=== PATIENT | female | born 1940 | race American Indian/Alaskan Native ===

== ENCOUNTER 2017-05-18 16:43 | Inpatient (IN) | payer MEDICARE, MEDICAID ==
[2017-05-18] MEDS ORDERED: Vancomycin 750mg 750 MG/250 ML BAG IVPB STA (17:20)
[2017-05-18] MEDS ORDERED: Cefepime IV 2 gm in NS 2 GM/100 ML BAG IVPB STA (17:23)
--- NOTE | 2017-05-18 17:35 | ED PDOC ---
Arrival/HPI - General Historian: Patient - History of Present Illness Time/Duration: > week Symptom Onset: Sudden Symptom Course: Intermittent Quality: Throbbing Severity Level: Moderate, Severe Context: Home - General Chief Complaint: Abnormal Skin Integrity Time Seen by Provider: 05/18/17 16:53 - History of Present Illness Narrative History of Present Illness (Text): 05/18/17 17:23 76F w/PMH sig for DM, HTN, COPD, CHF, asthma, Bilat chronic venous stasis and lymphedema, hx LE cellulitis, arthritis, gastritis, hiatal hernia evaluated for mechanical fall and L heel pain. Pt reports trying to get up out of recliner today when she slipped due to inability to bear weight on L heel. Pt reports trauma to gluteal area, no other areas of her body. Pt BIBA. L heel pain x 2 weeks, seen/evaluated by Dr. Sena on 05/15 with local wound care, Rx for ABx ( hasn't been filled), and recs for home nursing (not set up yet). Pt currently c/o L heel pain, severe, radiating up to mid calf, sharp. Also c/o Nausea. Denies emesis, F & C, vision changes, headache, back pain, neck pain, ab pain, other complaints. PMH: DM, HTN, COPD, CHF, asthma, Bilat chronic venous stasis and lymphedema, hx LE cellulitis, arthritis, gastritis, hiatal hernia, morbid obesity PSH: hx cardiac cath, hx hysterectomy, hernia repair All: chocolate, PCN, tomatoes, cheese doodles, Ibuprofen (hives) SH: lives with brother, denies ETOH, tobacco or illicit drug use PMD: Kayla (Hyatt,Chandler) Modifying Factors (Text): 05/18/17 17:35 Pressure to heel (Hyatt,Chandler) Past Medical History - Provider Review Nursing Documentation Reviewed: Yes - Infectious Disease Hx of Infectious Diseases: None - Reproductive Menopause: Yes - Cardiac Hx Cardiac Disorders: Yes (cardiac cath) Hx Congestive Heart Failure: Yes Hx Hypertension: Yes (also mild pulmonary HTN) - Pulmonary Hx Chronic Obstructive Pulmonary Disease (COPD): Yes - Neurological Hx Neurological Disorder: No - HEENT Hx HEENT Disorder: No - Renal Hx Renal Disorder: No - Endocrine/Metabolic Hx Diabetes Mellitus Type 2: Yes Hx Hypothyroidism: Yes - Hematological/Oncological Hx Blood Disorders: No - Integumentary Hx Dermatological Disorder: No - Musculoskeletal/Rheumatological Hx Arthritis: Yes - Gastrointestinal Hx Gastrointestinal Disorders: No (bm x 4 days) - Genitourinary/Gynecological Hx Reproductive Disorders: Yes (hysterectomy) - Psychiatric Hx Psychophysiologic Disorder: No Hx Substance Use: No - Surgical History Hx Cardiac Catheterization: Yes Hx Hysterectomy: Yes - Anesthesia Hx Anesthesia: Yes - Suicidal Assessment Feels Threatened In Home Enviroment: No Family/Social History - Physician Review Nursing Documentation Reviewed: Yes Family/Social History: No Known Family HX Smoking Status: Former Smoker Hx Alcohol Use: No Hx Substance Use: No Allergies/Home Meds Allergies/Adverse Reactions: Allergies chocolate flavor Allergy (Verified 05/15/17 16:49) RASH Penicillins Allergy (Verified 05/15/17 16:48) RASH cheese doodles Allergy (Uncoded 05/15/17 16:50) SWELLING tomatoe sauce Allergy (Uncoded 05/15/17 16:50) RASH Review of Systems - Physician Review All systems were reviewed & negative as marked: Yes - Review of Systems Constitutional: Normal. absent: Fevers Eyes: Normal. absent: Vision Changes ENT: Normal. absent: Sore Throat Respiratory: Normal. absent: SOB Cardiovascular: Normal. absent: Chest Pain Gastrointestinal: Nausea (occasional) Musculoskeletal: Other (L heel pain) Skin: Cellulitis (L heel) Physical Exam Vital Signs Reviewed: Yes Temperature: Afebrile Blood Pressure: Normal Pulse: Regular Respiratory Rate: Normal Appearance: Positive for: Non-Toxic, Comfortable Pain Distress: None Mental Status: Positive for: Alert and Oriented X 3 - Systems Exam Head: Present: Atraumatic, Normocephalic Extroacular Muscles: Present: EOMI Conjunctiva: Present: Normal Mouth: Present: Moist Mucous Membranes Nose (External): Present: Atraumatic Neck: Present: Normal Range of Motion Respiratory/Chest: Present: Clear to Auscultation, Good Air Exchange. No: Respiratory Distress, Accessory Muscle Use Cardiovascular: Present: Regular Rate and Rhythm, Normal S1, S2. No: Murmurs Abdomen: Present: Normal Bowel Sounds. No: Tenderness, Distention (obese), Peritoneal Signs, Rebound, Guarding Upper Extremity: Present: Normal Inspection. No: Cyanosis, Edema Lower Extremity: Present: Edema (B/L pitting edema ), Tenderness (L heel), Other (Bilat LE with dressings in place, Left dressing with serous strike through; Dressing removed, skin with ulcerated erythematous skin lesions with foul smell, heel with white discoloration. Tender to palpation over heel/ankle, up to mid calf. ). No: Normal Inspection Neurological: Present: GCS=15, CN II-XII Intact, Speech Normal Skin: Present: Warm, Dry, Rashes (Left lower leg), Normal Color, Erythematous ( Left lower leg), Hot (Left lower leg) Psychiatric: Present: Alert, Oriented x 3, Normal Insight, Normal Concentration Vital Signs Temp Pulse Resp BP Pulse Ox 05/18/17 22:12 72 168/111 H 05/18/17 21:20 66 16 170/91 H 100 05/18/17 19:31 71 16 163/105 H 95 05/18/17 16:55 97.8 F 71 18 136/71 100 Medical Decision Making ED Course and Treatment: Patient Seen With Resident: In agreement with resident note which contains more details about the patient. Patient was seen and evaluated with resident. Came up with plan and treatment together. (Tara Perez) 05/18/17 17:40 Pt seen/evaluated- case DW ED attending- will start ABx, order labs and podiatry consult due to Leg cellulitis. Pt did not fill PO Abx Rx given by podiatry. 05/18/17 17:[address] Sena's podiatry resident regarding pt consult- plan to round on pt tomorrow AM. OK with temporary dressing. 05/18/17 22:[address] Polo who accepts patient to service for admission, requesting gentle IVF and ISS - orders submitted. (Natasha Hyatt) - Lab Interpretations Lab Results: 05/18/17 19:30 05/18/17 19:30 Lab Results 05/18/17 19:30: Sodium 141, Potassium 4.4, Chloride 101, Carbon Dioxide 32, Anion Gap 12, BUN 36 H, Creatinine 2.0 H, Est GFR ( Amer) 29, Est GFR ( Non-Af Amer) 24, Random Glucose 56 L, Calcium 8.7, Total Bilirubin 1.0, AST 18, ALT 38, Alkaline Phosphatase 102, Total Protein 7.2, Albumin 3.6, Globulin 3.7, Albumin/Globulin Ratio 1.0 L 05/18/17 19:30: WBC 4.2 L, RBC 4.09, Hgb 10.7 L, Hct 34.8 L, MCV 85.1, MCH 26.2 , MCHC 30.7 L, RDW 22.5 H, Plt Count 226, Gran % 59.7, Lymph % (Auto) 22.3, [place] % (Auto) 15.7 H, Eos % (Auto) 2.1, Baso % (Auto) 0.2, Gran # 2.51, Lymph # 0.9 L, [place] # 0.7 H, Eos # 0.1, Baso # 0.01 - Medication Orders Current Medication Orders: Clonidine HCl (Catapres) 0.2 mg PO Q8 VIN Last Admin: 05/18/17 22:12 Dose: 0.2 mg MAR Pulse and Blood Pressure Document 05/18/17 22:12 HI (Rec: 05/18/17 22:12 [id number] Pulse Pulse Rate (60-90) 72 Blood Pressure Blood Pressure (100/60-150/90) 168/111 Discontinued Medications Acetaminophen (Tylenol 325mg Tab) 650 mg PO STAT STA Stop: 05/18/17 17:21 Last Admin: 05/18/17 19:18 Dose: Not Given Non-Admin Reason: Patient Refused Dextrose (Dextrose 50% Inj) 50 ml IVP STAT STA Stop: 05/18/17 20:57 Last Admin: 05/18/17 21:12 Dose: 50 ml IVP Administration Document 05/18/17 21:12 HI (Rec: 05/18/17 21:12 [id number][facility] Charges for Administration # of IVP Administrations 1 Vancomycin HCl (Vancomycin 750 Mg In Ns) 750 mg in 250 mls @ 167 mls/hr IVPB STAT STA PRN Reason: Protocol Stop: 05/18/17 18:49 Last Admin: 05/18/17 19:21 Dose: 167 mls/hr eMAR Start Stop Document 05/18/17 19:21 HI (Rec: 05/18/17 19:21 [id number]) Intravenous Solution Start Date 05/18/17 Start Time 19:21 Cefepime HCl (Maxipime 2gm) 2 gm in 100 mls @ 100 mls/hr IVPB STAT STA PRN Reason: Protocol Stop: 05/18/17 18:22 Morphine Sulfate (Morphine) 2 mg IVP STAT STA Stop: 05/18/17 19:05 Last Admin: 05/18/17 19:21 Dose: 2 mg [facility] Pain Assessment Document 05/18/17 19:21 HI (Rec: 05/18/17 19:21 [id number]) Pain Reassessment Is this a pain reassessment? No Sleep Is patient sleeping during reassessment? No Presence of Pain Presence of Pain Yes Pain Scale Used Pain Scale Used Numeric IVP Administration Document 05/18/17 19:21 HI (Rec: 05/18/17 19:21 [id number]) Charges for Administration # of IVP Administrations 1 Re-Assess: GERRY Pain Assessment Document 05/18/17 20:21 HI (Rec: 05/18/17 21:02 [id number]) Pain Reassessment Is this a pain reassessment? Yes Sleep Is patient sleeping during reassessment? No Presence of Pain Presence of Pain No Disposition/Present on Arrival - Present on Arrival Any Indicators Present on Arrival: No History of DVT/PE: No History of Uncontrolled Diabetes: No Urinary Catheter: No History of Decub. Ulcer: No History Surgical Site Infection Following: None - Disposition Have Diagnosis and Disposition been Completed?: Yes Disposition Time: 22:22 Patient Plan: Admission - Disposition Diagnosis: Cellulitis Disposition: HOSPITALIZED Patient Problems: Current Active Problems Problem Status Onset Cellulitis Acute Condition: FAIR
[2017-05-18] MEDS ORDERED: Morphine 2 mg/ml ISec IVP STA ×2 (19:04→22:54)
[2017-05-18 19:37] LABS: BASO # 0.01 K/mm3 (0.0-2.0); BASO % 0.2 % (0.0-3.0); EOS # 0.1 (0.0-0.7); EOS % 2.1 % (1.5-5.0); GRAN # 2.51 (1.4-6.5); GRAN % 59.7 % (50.0-68.0); HEMATOCRIT 34.8 % (36.0-48.0); LYMPH # 0.9 (1.2-3.4); LYMPH % 22.3 % (22.0-35.0); MEAN CELL VOLUME 85.1 fl (80.0-105.0); MEAN CORPUSCULAR HEMOGLOBIN 26.2 pg (25.0-35.0); MEAN CORPUSCULAR HGB CONC 30.7 g/dl (31.0-37.0); MONO # 0.7 (0.1-0.6); MONO % 15.7 % (1.0-6.0); PLATELET COUNT 226 10^3/uL (120.0-450.0); RED CELL DISTRIBUTION WIDTH 22.5 % (11.5-14.5); WHITE BLOOD COUNT 4.2 10^3/ul (4.5-11.0)
[2017-05-18 20:01] LABS: CALCIUM 8.7 mg/dL (8.4-10.5); POTASSIUM 4.4 mmol/L (3.6-5.0); TOTAL PROTEIN 7.2 g/dL (5.8-8.3)
[2017-05-18] MEDS ORDERED: Dextrose 50% SYRINGE Inj (50 ml) IVP STA (20:56)
[2017-05-19 07:05] VITALS: BMI 46.3
[2017-05-19] MEDS: Insulin Reg-LOW-Coverage SC SCH ×4 (08:12→22:16)
--- NOTE | 2017-05-19 09:25 | CP.PCM.CON ---
Addendum entered and electronically signed by Belen Finney DPM 05/19/17 09:33: took new wound cx of left lower extremity, awaiting results wound cx from 05/15 result: pseudomonas, enterococcus, enterobacter cloacae Original Note: <Belen Finney - Last Filed: 05/19/17 09:21> History of Present Illness - History of Present Illness History of Present Illness: 76F w/PMH sig for DM, HTN, COPD, CHF, asthma, Bilat chronic venous stasis and lymphedema, hx LE cellulitis, arthritis, gastritis, hiatal hernia seen at bedside with attending Dr. Sena for left leg stasis ulceration. Patient came to the ED yesterday after experiencing a fall due to loss of balance. Patient states that she has left heel pain. Patient denies any other pedal complaints at this time. patient was seen in the wound care center by Dr. Sena earlier this week. Patient denies any acute events overnight. Patient states that she never had the prescrption for antibiotics filled. Patient denies n/f/v/d/c/sob. Review of Systems - Constitutional Constitutional: As Per HPI Past Patient History - Infectious Disease Hx of Infectious Diseases: None - Past Medical History & Family History Past Medical History?: Yes - Past Social History Smoking Status: Former Smoker - CARDIAC Hx Cardiac Disorders: Yes (cardiac cath) Hx Congestive Heart Failure: Yes Hx Hypertension: Yes (also mild pulmonary HTN) - PULMONARY Hx Chronic Obstructive Pulmonary Disease (COPD): Yes - NEUROLOGICAL Hx Neurological Disorder: No - HEENT Hx HEENT Problems: No - RENAL Hx Chronic Kidney Disease: No - ENDOCRINE/METABOLIC Hx Diabetes Mellitus Type 2: Yes Hx Hypothyroidism: Yes - HEMATOLOGICAL/ONCOLOGICAL Hx Blood Disorders: No - INTEGUMENTARY Hx Dermatological Problems: No - MUSCULOSKELETAL/RHEUMATOLOGICAL Hx Falls: Yes - GASTROINTESTINAL Hx Gastrointestinal Disorders: No (bm x 4 days) - GENITOURINARY/GYNECOLOGICAL Hx Genitourinary Disorders: No - PSYCHIATRIC Hx Psychophysiologic Disorder: No Hx Substance Use: No - SURGICAL HISTORY Hx Cardiac Catheterization: Yes Hx Hysterectomy: Yes - ANESTHESIA Hx Anesthesia: Yes Meds Allergies/Adverse Reactions: Allergies Allergy/AdvReac Type Severity Reaction Status Date / Time chocolate flavor Allergy RASH Verified 05/15/17 16:49 Penicillins Allergy RASH Verified 05/15/17 16:48 cheese doodles Allergy SWELLING Uncoded 05/15/17 16:50 tomatoe sauce Allergy RASH Uncoded 05/15/17 16:50 - Medications Medications: Current Medications Clonidine HCl (Catapres) 0.2 mg PO Q8 [facility] Last Admin: 05/19/17 06:22 Dose: 0.2 mg Sodium Chloride (Sodium Chloride 0.45%) 1,000 mls @ 60 mls/hr IV .[id number] [facility] Insulin Human Regular (Humulin R Low) 0 units SC ACHS [facility] PRN Reason: Protocol Last Admin: 05/19/17 08:12 Dose: Not Given Physical Exam - Constitutional Appears: Well, Non-toxic, No Acute Distress - Extremities Exam Additional comments: LLE focused: Vasc: DP/PT 1/4, TG wnl, CFT < 3 sec to all digits, nonpitting edema neuro: grossly diminished derm: superficial left lower extremity patchy stasis ulcerations with greenish/ whitish discoloration, nonpitting edema, no erythema, moderate malodor, moderate serous drainage noted on bandage, no ascending cellulitis, no purulence , no underlying fluctuance ortho: mild pain on palpation to left lower extremity , no pain onpalpation to heel - Neurological Exam Neurological exam: Alert, Oriented x3 - Psychiatric Exam Psychiatric exam: Normal Affect, Normal Mood Results - Vital Signs Recent Vital Signs: Last Vital Signs Temp 98.5 F 05/19/17 07:00 Pulse 68 05/19/17 07:00 Resp 20 05/19/17 07:00 BP 155/82 H 05/19/17 07:00 Pulse Ox 99 05/19/17 07:00 - Labs Result Diagrams: 05/18/17 19:30 05/18/17 19:30 Assessment & Plan - Assessment and Plan (Free Text) Assessment: 76F w/PMH sig for DM, HTN, COPD, CHF, asthma, Bilat chronic venous stasis and lymphedema, hx LE cellulitis, arthritis, gastritis, hiatal hernia seen at bedside for left lower extremity venous stasis ulceration Plan: patient evaluated and chart reviewed seen at bedside with attending Dr. Sena labs and vitals reviewed; WBC 4.2, afebrile tib/fib x ray of left leg reveal no acute evidence of fracture or dislocation, no soft tissue abnormalitiies Rx left foot x ray to rule out heel pain Rx multipodus offloading boots while patient bed bound applied silvercel, 4x4 gauze, ABD, kerlix, WILLI to LLE podiatry will continue to follow while patient remains in house <Moe Sena - Last Filed: 05/21/17 08:29> Meds - Medications Medications: Current Medications Acetaminophen (Tylenol 325mg Tab) 650 mg PO Q6H PRN PRN Reason: pain or fever Last Admin: 05/21/17 00:04 Dose: 650 mg Clonidine HCl (Catapres) 0.2 mg PO Q8 [facility] Last Admin: 05/21/17 06:27 Dose: 0.2 mg Docusate Sodium (Colace) 100 mg PO DAILY [facility] Last Admin: 05/20/17 09:22 Dose: 100 mg Ferrous Gluconate (Fergon) 324 mg PO TID [facility] Last Admin: 05/20/17 17:09 Dose: 324 mg Sodium Chloride (Sodium Chloride 0.45%) 1,000 mls @ 60 mls/hr IV .[id number] [facility] Last Admin: 05/21/17 01:09 Dose: Not Given Vancomycin HCl (Vancomycin 750 Mg In Ns) 750 mg in 250 mls @ 167 mls/hr IVPB Q12 [facility] Last Admin: 05/20/17 22:34 Dose: 167 mls/hr Cefepime HCl (Maxipime 1gm) 1 gm in 100 mls @ 100 mls/hr IVPB DAILY [facility] Last Admin: 05/20/17 10:29 Dose: 100 mls/hr Insulin Human Regular (Humulin R Low) 0 units SC ACHS [facility] PRN Reason: Protocol Last Admin: 05/21/17 08:21 Dose: Not Given Nitroglycerin (Nitro-Bid 2% Oint) 1 ea TOP Q4H PRN PRN Reason: accelerated htn Nystatin (Nystop Topical Powder) 0 gm TOP DAILY [facility] Last Admin: 05/20/17 12:09 Dose: 1 applic Results - Vital Signs Recent Vital Signs: Last Vital Signs Temp 98.2 F 05/21/17 08:00 Pulse 66 05/21/17 08:00 Resp 20 05/21/17 08:00 BP 154/79 H 05/21/17 08:00 Pulse Ox 100 05/21/17 08:00 - Labs Result Diagrams: 05/20/17 06:00 05/21/17 07:30 Labs: Laboratory Results - last 24 hr 05/19/17 05/20/17 05/20/17 21:30 07:16 11:31 Sodium Potassium Chloride Carbon Dioxide Anion Gap BUN Creatinine Est GFR ( Amer) Est GFR (Non-Af Amer) POC Glucose (mg/dL) 148 H 106 116 H Random Glucose Calcium 05/20/17 05/20/17 05/21/17 16:40 21:41 07:26 Sodium Potassium Chloride Carbon Dioxide Anion Gap BUN Creatinine Est GFR ( Amer) Est GFR (Non-Af Amer) POC Glucose (mg/dL) 126 H 193 H 98 Random Glucose Calcium 05/21/17 07:30 Sodium 138 Potassium 4.8 Chloride 101 Carbon Dioxide 29 Anion Gap 13 BUN 34 H Creatinine 1.5 H Est GFR ( Amer) 41 Est GFR (Non-Af Amer) 34 POC Glucose (mg/dL) Random Glucose 98 Calcium 7.5 L Attending/Attestation - Attestation I have personally seen and examined this patient.: Yes I have fully participated in the care of the patient.: Yes I have reviewed all pertinent clinical information: Yes
--- NOTE | 2017-05-19 10:17 | RAD ---
PROCEDURE: Radiographs of the left tibia and fibula. HISTORY: r/o soft tissue gas/periosteal cuffing COMPARISON: None available. TECHNIQUE: Frontal and lateral views obtained. FINDINGS: BONES: No fracture or destructive lesion. JOINT SPACES: Unremarkable. OTHER FINDINGS: There is diffuse soft tissue swelling IMPRESSION: Unremarkable radiographs of the left tibia and fibula.
--- NOTE | 2017-05-19 10:18 | RAD ---
HISTORY: routine medicial exam COMPARISON: 07/04/2015 FINDINGS: LUNGS: No active pulmonary disease. PLEURA: No significant pleural effusion identified, no pneumothorax apparent. CARDIOVASCULAR: Severe cardiomegaly OSSEOUS STRUCTURES: No significant abnormalities. VISUALIZED UPPER ABDOMEN: Normal. OTHER FINDINGS: None. IMPRESSION: Severe cardiomegaly
[2017-05-19] MEDS ORDERED: Cefepime IV 2 gm in NS 2 GM/100 ML BAG IVPB SCH (11:45)
[2017-05-19] MEDS ORDERED: Nitroglycerin 2% Ointment Foilpak UD TOP PRN (11:46)
[2017-05-19 12:55] LABS: IRON 27 ug/dL (45-180)
--- NOTE | 2017-05-19 14:08 | RAD ---
PROCEDURE: Left Foot Radiographs. HISTORY: rule out left heel pain COMPARISON: None. FINDINGS: BONES: Normal. No fracture. JOINTS: Mild degenerative changes especially in the 1st MTP joint SOFT TISSUES: Normal. OTHER FINDINGS: None. IMPRESSION: No acute findings
--- NOTE | 2017-05-19 15:38 | HP ---
HISTORY OF PRESENT ILLNESS: This 76-year-old -[place] female was examined at her bedside and her case was reviewed in detail with her nurse, Mily Winston, registered nurse. The patient presented to [facility] last evening complaining of weakness, deconditioning, bilateral lower extremity cellulitis and pain in her left heel and the patient was admitted for cellulitis of the lower extremities. The patient follows with Dr. Sena, kitchen operator; he had recommended earlier in the week an oral antibiotic therapy for her cellulitis. The patient states she was unable to fill her prescription, and when she tried to ambulate in her home yesterday could not because of left heel pain that was worsening in intensity over the past 2 weeks. The patient was admitted with bilateral lower extremity cellulitis and has multiple other medical problems including non-insulin dependent diabetes mellitus, morbid obesity, chronic hypertension, chronic obstructive pulmonary disease, congestive heart failure, asthmatic bronchitis and chronic bilateral chronic venous stasis changes of both lower extremities with chronic lymphedema, chronic anemia, a history of left lower extremity cellulitis in her past as well as degenerative arthritis, gastritis, hiatal hernia and failure to perform activities of daily living. MEDICATIONS: The patient's outpatient medications included lactulose 20 g p.o. daily p.r.n. obstipation, Lasix 40 mg p.o. b.i.d., K-Dur 20 mEq p.o. daily, Colace 100 mg b.i.d., Duo nebulizers q. 4 hours p.r.n., Micronase 5 mg b.i.d. and Catapres 0.2 mg p.o. q. 8 hours. ALLERGIES: SHE ADMITS ALLERGIES TO CHOCOLATE, PENICILLIN, CHEESE AND TOMATOES. SOCIAL HISTORY: She is nondrinking, nonsmoking, non-IV drug misusing. Retired homemaker. FAMILY HISTORY: Noncontributory. REVIEW OF SYSTEMS: CONSTITUTIONAL: No fever or chills. HEAD: No history of seizure or stroke. EYES REVIEW: No change in visual acuity. EARS REVIEW: No hearing loss. THROAT REVIEW: No swallowing difficulty. NECK REVIEW: No stiffness. CARDIAC REVIEW: She has chronic hypertension. PULMONARY: Chronic obstructive pulmonary disease, history of asthmatic bronchitis. GASTROINTESTINAL: History of GERD. GENITOURINARY: No dysuria. SKIN: As per HPI, bilateral cellulitis and venous stasis changes of the legs. MUSCULOSKELETAL: Degenerative arthritis. ENDOCRINE: Type 2 diabetes mellitus. NEUROLOGICAL: No knowledge of stroke. PSYCHOLOGICAL: Chronic anxiety. PHYSICAL EXAMINATION: VITAL SIGNS: Temperature 98.5, respirations 20, pulse 68, blood pressure 155/82 and pulse ox 98% on room air. HEENT: Head normocephalic and atraumatic. Eyes: No icterus. Ears: Clear. Throat: Noninjected. NECK: Supple. HEART: Regular S1 and S2. No pathological rubs, murmurs or gallops. LUNGS: No wheezing, no rhonchi. ABDOMEN: Obese, nontender. No palpable organomegaly. No rebound. No guarding. No tenderness. EXTREMITIES: Bilateral venous stasis changes of both lower extremities with cellulitis of the pretibial surfaces of both legs. VASCULAR: Legs warm to touch. PSYCHOLOGICAL: Alert and oriented x3. NEUROLOGIC: Grossly intact. PSYCHOLOGICAL: Mildly anxious. LABORATORY DATA: White count 4200; hemoglobin 10.7; hematocrit 34.8; platelets 226,000. Sodium 141, K of 4.4, chloride 101, bicarb 32, BUN 36, creatinine 2.0, random blood sugar was 56. Iron 27, low; T-sat 9%, low. All liver function testing normal. Bilirubin 1.0, AST 18, ALT 38, alk phos 102. BNP 5960. Chest x-ray reviewed and shows no active pulmonary disease, no significant pleural effusions, no pneumothorax, cardiomegaly. Tibia-fibula x-rays of the left leg reviewed; show no fracture or destructive lesions, diffuse soft tissue swelling and unremarkable radiograph of the left tibia-fibula disease. On further discussion with the patient, she states she has had a colonoscopy within the last year to 2 and was told she had no cancer on endoscopy or colonoscopy, but she admits she was noncompliant with iron supplementation. PLAN: At present is to await podiatry evaluation regarding her podiatric issues including bilateral cellulitis, left leg stasis and ulceration and outlining of wound care. The patient also will be treated with gentle IV fluids given her mild azotemia and will have a repeat basic metabolic panel and hemoglobin/hematocrit in the a.m. I have requested blood and urine cultures as well as wound cultures and left foot x-rays regarding left heel pain. She continues on 0.45% saline at 60 mL/hour; clonidine 0.2 mg p.o. q. 8 hours; insulin coverage a.c. meals and at bedtime, low dose; Maxipime 1 g IV q. 24 and vancomycin 750 mg IV q. 12, both dose reduced because of her chronic renal failure. She will receive nitroglycerin 1-inch chest wall q. 4 hours, p.r.n. accelerated hypertension if systolic blood pressure greater than 160 or diastolic blood pressure greater than 100. She will have Tylenol 650 p.o. q. 6 hours p.r.n. pain or temperature greater than 101. She will continue on diabetic heart-healthy renal diet. She is ordered to be out of bed to chair and to have physical therapy ordered, and based on her clinical progress will be considered for transitional care rehab versus subacute rehab. All of the above was discussed in detail with the patient. Greater than sixty minutes was spent in the care, management, counseling of this patient today. All of the above was reviewed with both the patient and her nurse at the bedside. All questions were answered. Bernice Polo MD MTDMatthias
[2017-05-19] MEDS: Cefepime 1gm in NS 100ml 1 GM/100 ML BAG IVPB SCH (16:01)
[2017-05-19 17:50] LABS: FOLATE > 20.0 ng/mL
[2017-05-19] MEDS: Vancomycin 750mg 750 MG/250 ML BAG IVPB SCH ×2 (18:32→22:12)
[2017-05-19] MEDS: Sodium Chloride 0.45% 1,000 ML IV SCH (22:13)
[2017-05-20 07:49] LABS: HEMATOCRIT 32.3 % (36.0-48.0)
[2017-05-20 07:51] LABS: CALCIUM 7.9 mg/dL (8.4-10.5); POTASSIUM 4.2 mmol/L (3.6-5.0)
[2017-05-20] MEDS: Insulin Reg-LOW-Coverage SC SCH ×4 (08:18→21:57)
[2017-05-20] MEDS: Cefepime 1gm in NS 100ml 1 GM/100 ML BAG IVPB SCH (10:29)
[2017-05-20] MEDS: Vancomycin 750mg 750 MG/250 ML BAG IVPB SCH ×2 (10:30→22:34)
[2017-05-20] MEDS: Nystatin 100,000 Units/gm Topical Pow(15 gm) TOP SCH (12:09)
[2017-05-20] MEDS: Sodium Chloride 0.45% 1,000 ML IV SCH (22:12)
--- NOTE | 2017-05-20 23:04 | PN ---
DATE: 05/20/2017 SUBJECTIVE: This 76-year-old female was examined at her bedside. Her case was reviewed in detail with herself and her nurse, Mily Winston, registered nurse. The patient is lying in bed. She is a much more alert and conversant. She denies fever, chills, chest pain, shortness of breath, or vomiting. PHYSICAL EXAMINATION: VITAL SIGNS: Today, temperature was 97.6, respirations 20, pulse 73, blood pressure 115/70, and pulse ox of 100% room air. HEENT: Head is normocephalic, atraumatic. Eyes: No icterus. Ears: Clear. Throat: Noninjected. NECK: Supple. HEART: Regular S1, S2. No pathological rubs, murmurs, or gallops. LUNGS: Clear to auscultation. ABDOMEN: Obese, nontender. No palpable organomegaly. EXTREMITIES: With bilateral cellulitis. She was wearing Tevin bandages from foot to knees. VASCULAR: Legs warm to touch. PSYCHOLOGIC: Alert and oriented x3. NEUROLOGIC: Deconditioned but grossly intact. LABORATORY DATA: Hemoglobin 9.6, hematocrit 32.3. Previous hemoglobin 10.7, hematocrit 34.8. Sodium 139, K 4.2, chloride 102, bicarb 30, BUN 35, creatinine 1.7. Previous BUN 36, creatinine 2.0. Blood sugar 92. Iron level 27, percent saturation 9. All liver function testing normal. Bilirubin 1, AST 18, ALT 38, and alk phos 102. B12 of 879, normal, folic acid greater than 20. IMPRESSION: A 76-year-old female with morbid obesity, bilateral lower extremity cellulitis with previous wound cultures from May 15 showing Pseudomonas, Enterococcus, and Enterobacter, sensitive to vancomycin and Maxipime. Also, with morbid obesity; renal failure stage III; type 2 diabetes mellitus, now insulin dependent; chronic hypertension; iron-deficiency anemia; anemia; degenerative arthritis; bilateral cellulitis. PLAN: Continue vancomycin 750 mg IV q. 12 dose reduced for chronic renal failure as well as Maxipime 1 g IV q. 24. Tylenol 650 p.o. q.6 hours p.r.n. pain; nitroglycerin 1 inch chest wall q. 4 hours p.r.n. accelerated hypertension, if systolic blood pressure greater than 160 diastolic blood pressure greater than 100; regular low-dose insulin protocol a.c., meals, at bedtime; ferrous gluconate 324 mg p.o. daily; Colace 100 mg p.o. daily; clonidine 0.2 mg p.o. t.i.d. and 0.45 saline at 60 mL/hour. I am awaiting repeat blood, urine, and wound cultures. She will have a basic metabolic panel rechecked in a.m. She is ordered to have a heart-healthy diabetic diet. Wound care is being done daily by Podiatry, Dr. Sena. She is ordered to have physical therapy evaluation for ambulation and reconditioning and ultimate plan will be to have this patient assessed for transitional care rehab once medically stabilized. All of the above was discussed in detail with the patient and her nurse, Mily Winston, present at the bedside. Greater than fifty minutes was spent in the care, counseling, and management of this patient today. All questions were answered. Bernice Polo MD MTDD
[2017-05-21] MEDS: Sodium Chloride 0.45% 1,000 ML IV SCH ×3 (01:09→18:14)
[2017-05-21 07:50] LABS: CALCIUM 7.5 mg/dL (8.4-10.5); POTASSIUM 4.8 mmol/L (3.6-5.0)
[2017-05-21] MEDS: Insulin Reg-LOW-Coverage SC SCH ×3 (08:21→17:08)
[2017-05-21] MEDS: Vancomycin 750mg 750 MG/250 ML BAG IVPB SCH (09:49)
[2017-05-21] MEDS: Nystatin 100,000 Units/gm Topical Pow(15 gm) TOP SCH (11:23)
--- NOTE | 2017-05-21 12:29 | CP.PCM.PN ---
<Neo Can - Last Filed: 05/21/17 12:21> Subjective - Date & Time of Evaluation Date of Evaluation: 05/21/17 Time of Evaluation: 12:21 - Subjective Subjective: 76F w/PMH sig for DM, HTN, COPD, CHF, asthma, Bilat chronic venous stasis and lymphedema, hx LE cellulitis, arthritis, gastritis, hiatal hernia seen at bedside for left leg stasis ulceration. Patient states that her left heel pain is decreased at this time. Patient denies any other pedal complaints at this time. Patient denies any acute events overnight. Patient denies n/f/v/d/c/sob. Objective - Vital Signs/Intake and Output Vital Signs (last 24 hours): Temp Pulse Resp BP Pulse Ox 98.2 F 66 20 154/79 H 100 05/21/17 08:00 05/21/17 08:00 05/21/17 08:00 05/21/17 08:00 05/21/17 08:00 Intake and Output: 05/21/17 05/21/17 06:59 18:59 Intake Total 1680 Output Total 500 Balance 1180 - Medications Medications: Current Medications Acetaminophen (Tylenol 325mg Tab) 650 mg PO Q6H PRN PRN Reason: pain or fever Last Admin: 05/21/17 00:04 Dose: 650 mg Clonidine HCl (Catapres) 0.2 mg PO Q8 [facility] Last Admin: 05/21/17 06:27 Dose: 0.2 mg Docusate Sodium (Colace) 100 mg PO DAILY [facility] Last Admin: 05/21/17 09:48 Dose: 100 mg Ferrous Gluconate (Fergon) 324 mg PO TID [facility] Last Admin: 05/21/17 09:49 Dose: 324 mg Sodium Chloride (Sodium Chloride 0.45%) 1,000 mls @ 60 mls/hr IV .[id number] [facility] Last Admin: 05/21/17 01:09 Dose: Not Given Vancomycin HCl (Vancomycin 750 Mg In Ns) 750 mg in 250 mls @ 167 mls/hr IVPB Q12 [facility] Last Admin: 05/21/17 09:49 Dose: 167 mls/hr Cefepime HCl (Maxipime 1gm) 1 gm in 100 mls @ 100 mls/hr IVPB DAILY [facility] Last Admin: 05/20/17 10:29 Dose: 100 mls/hr Insulin Human Regular (Humulin R Low) 0 units SC ACHS [facility] PRN Reason: Protocol Last Admin: 05/21/17 08:21 Dose: Not Given Nitroglycerin (Nitro-Bid 2% Oint) 1 ea TOP Q4H PRN PRN Reason: accelerated htn Nystatin (Nystop Topical Powder) 0 gm TOP DAILY [facility] Last Admin: 05/20/17 12:09 Dose: 1 applic - Labs Labs: 05/20/17 06:00 05/21/17 07:30 - Constitutional Appears: Well, Non-toxic, No Acute Distress - Extremities Exam Additional comments: LLE focused: Vasc: DP/PT 1/4, TG wnl, CFT < 3 sec to all digits, non-pitting edema neuro: grossly diminished derm: superficial left lower extremity patchy stasis ulcerations with greenish/ whitish discoloration, nonpitting edema, no erythema, moderate malodor, moderate serous drainage noted on bandage, no ascending cellulitis, no purulence , no underlying fluctuance ortho: mild pain on palpation to left lower extremity , no pain on palpation to heel - Neurological Exam Neurological Exam: Alert, Awake, Oriented x3 - Psychiatric Exam Psychiatric exam: Normal Affect, Normal Mood Assessment and Plan - Assessment and Plan (Free Text) Assessment: 76F w/PMH sig for DM, HTN, COPD, CHF, asthma, Bilat chronic venous stasis and lymphedema, hx LE cellulitis, arthritis, gastritis, hiatal hernia seen at bedside for left lower extremity venous stasis ulceration Plan: Patient seen and evaluated at bedside Charts, labs and vitals reviewed: afebrile Plan discussed with attending Dr. Sena Wound dressed with sivercel, gauze, ABD, kirlix and WILLI Continue IV abx per ID Wound cx 05/19: Pseudomonas aeruginosa, Enterococcus Faecilis Foot xray 05/19: No acute findings Tib/fib x ray of left leg 05/18: no acute evidence of fracture or dislocation, no soft tissue abnormalitiies Continue PT/OT Podiatry will continue to follow while patient remains in house <Moe Sena - Last Filed: 05/21/17 17:16> Objective - Vital Signs/Intake and Output Vital Signs (last 24 hours): Temp Pulse Resp BP Pulse Ox 98.2 F 64 20 132/79 100 05/21/17 08:00 05/21/17 14:31 05/21/17 08:00 05/21/17 14:31 05/21/17 08:00 Intake and Output: 05/21/17 05/21/17 06:59 18:59 Intake Total 1680 Output Total 500 Balance 1180 - Medications Medications: Current Medications Acetaminophen (Tylenol 325mg Tab) 650 mg PO Q6H PRN PRN Reason: pain or fever Last Admin: 05/21/17 00:04 Dose: 650 mg Clonidine HCl (Catapres) 0.2 mg PO Q8 [facility] Last Admin: 05/21/17 14:31 Dose: 0.2 mg Docusate Sodium (Colace) 100 mg PO DAILY [facility] Last Admin: 05/21/17 09:48 Dose: 100 mg Ferrous Gluconate (Fergon) 324 mg PO TID [facility] Last Admin: 05/21/17 14:31 Dose: 324 mg Sodium Chloride (Sodium Chloride 0.45%) 1,000 mls @ 60 mls/hr IV .[id number] [facility] Last Admin: 05/21/17 01:09 Dose: Not Given Vancomycin HCl (Vancomycin 750 Mg In Ns) 750 mg in 250 mls @ 167 mls/hr IVPB Q12 [facility] Last Admin: 05/21/17 09:49 Dose: 167 mls/hr Cefepime HCl (Maxipime 1gm) 1 gm in 100 mls @ 100 mls/hr IVPB DAILY [facility] Last Admin: 05/21/17 13:51 Dose: 100 mls/hr Insulin Human Regular (Humulin R Low) 0 units SC ACHS [facility]IN PRN Reason: Protocol Last Admin: 05/21/17 17:08 Dose: Not Given Nitroglycerin (Nitro-Bid 2% Oint) 1 ea TOP Q4H PRN PRN Reason: accelerated htn Nystatin (Nystop Topical Powder) 0 gm TOP DAILY [facility] Last Admin: 05/21/17 11:23 Dose: 1 applic - Labs Labs: 05/20/17 06:00 05/21/17 07:30 Attending/Attestation - Attestation I have personally seen and examined this patient.: Yes I have fully participated in the care of the patient.: Yes I have reviewed all pertinent clinical information, including history, physical exam and plan: Yes
[2017-05-21] MEDS: Cefepime 1gm in NS 100ml 1 GM/100 ML BAG IVPB SCH (13:51)
--- NOTE | 2017-05-21 16:37 | US ---
PROCEDURE: Ultrasound of the Kidneys HISTORY: Azotemia COMPARISON: None available. TECHNIQUE: Sonogram of the kidneys. FINDINGS: RIGHT KIDNEY: Measures: 12.0 cm. Normal in size, contour and echogenicity. No stone, solid mass lesion or hydronephrosis visualized. There is a 5.0 x 4.3 x 4.0 cm simple cyst in the upper pole. This LEFT KIDNEY: Measures: 11.0 cm. Normal in size, contour and echogenicity. No stone, solid mass lesion or hydronephrosis visualized. OTHER FINDINGS: None. IMPRESSION: No hydronephrosis or nephrolithiasis. 5.0 cm simple cyst in the right upper pole.
[2017-05-21] MEDS ORDERED: Vancomycin 1 g Inj IVPB SCH (21:00)
[2017-05-21] MEDS: Vancomycin 1gm in NS 250ml 1 GM/250 ML BAG IVPB SCH (21:10)
--- NOTE | 2017-05-22 00:53 | PN ---
DATE: 05/21/2017 SUBJECTIVE: This 76-year-old female was examined at the bedside and her case was reviewed in detail with herself and nurse Emiliana Andrews, registered nurse. The patient is more alert, tolerating diet and medication and cooperating with nursing staff regarding medication administration. She is being followed by podiatry daily who is performing wound dressings for bilateral chronic venous stasis changes of both lower extremities with cellulitis and lymphedema. She was being followed on an outpatient basis by Dr. Sena, from podiatry prior to this admission for left leg stasis ulceration that on wound culture under his direction revealed Pseudomonas, Enterococcus and Enterobacter sensitive to vancomycin and Maxipime which she is currently receiving. He continues to dress her wound with Silverseal gauze, Kerlix and an Tevin bandage. Review of her tibia/fibula x-rays of the left leg showed no evidence of fracture dislocation or soft tissue abnormalities. He is currently recommending physical and occupational therapy and will continue daily wound care dressings. The patient is denying fever, chills or chest pain. PHYSICAL EXAMINATION: VITAL SIGNS: At present, temperature was 98.2, respirations of 20, pulse of 66 and blood pressure of 154/79 with a pulse oximetry of 100% room air. HEENT: Head was normocephalic and atraumatic. Eyes: No icterus. Ears: Clear. Throat: Noninjected. NECK: Supple. CARDIOVASCULAR: Heart was regular S1 and S2. No pathological rubs, murmurs or gallops. LUNGS: Clear. ABDOMEN: Obese. EXTREMITIES: Bilateral cellulitis, left leg ulceration with a new dressing intact. VASCULAR: Legs warm to touch. PSYCHOLOGICAL: Alert and oriented x3. NEUROLOGIC: Intact. RADIOLOGIC DATA: I reviewed the patient's renal ultrasound that shows no hydronephrosis or nephrolithiasis and she had of 5-mm simple cyst in her right upper kidney. LABORATORY DATA: Hemoglobin of 9.6 and hematocrit of 32.3. Sodium of 138, potassium of 4.8, chloride of 101, bicarbonate of 29, BUN of 34, and creatinine of 1.5. Estimated GFR is 41 mL per minute and random blood sugar is 164. Random vancomycin level was low at 16.1. IMPRESSION: This is a 76-year-old female with cellulitis of the lower extremities and the venous stasis ulcer on her left leg with comorbidities of chronic renal failure stage III-IV, chronic hypertension, morbid obesity, iron-deficiency anemia for which the patient states she has completed outpatient endoscopy and colonoscopy that were negative for cancer, also with type 2 diabetes mellitus, and degenerative arthritis. PLAN: At present is to increase her vancomycin to 1 g IV q. 12 hours. while monitoring blood levels and serial electrolytes, she will continue on nitroglycerin 1 inch to chest wall q. 4 hours. p.r.n. accelerated hypertension, if her systolic blood pressure is greater than 160 or diastolic blood pressure is greater than 100, she continues on cefepime, Maxipime antibiotic 1 g IV q. 24 hours. dose reduced for renal failure. She will continue on regular low-dose insulin coverage a.c. meals and at bed time, ferrous gluconate 324 mg p.o. t.i.d., Colace 100 mg p.o. daily, clonidine 0.2 mg p.o. q. 8 hours. and 0.45 saline at 60 mL an hour while monitoring her volume status and daily electrolytes. The patient continues on diabetic renal heart-healthy diet. She remains on fall precautions and out of bed to chair with assistance. She is ordered to have physical therapy for reconditioning and hopefully will be accepted to transitional care rehab for additional antibiotics, laboratory monitoring and reconditioning. Her blood culture showed no growth to date. Her wound culture once again grew Pseudomonas and Enterococcus. Repeat sensitivities showed that the Pseudomonas is sensitive to Maxipime and the Enterococcus is sensitive to vancomycin which will be continued while monitoring electrolytes and vancomycin levels. Greater than fifty minutes was spent in the care, counseling and management of this patient today. All questions were answered and case was reviewed in detail with podiatry and nursing as well as the patient. Bernice Polo MD MTDMatthias
[2017-05-22 07:49] LABS: HEMATOCRIT 34.5 % (36.0-48.0); MEAN CELL VOLUME 87.3 fl (80.0-105.0); MEAN CORPUSCULAR HEMOGLOBIN 26.3 pg (25.0-35.0); MEAN CORPUSCULAR HGB CONC 30.1 g/dl (31.0-37.0); PLATELET COUNT 174 10^3/uL (120.0-450.0); RED CELL DISTRIBUTION WIDTH 22.5 % (11.5-14.5); WHITE BLOOD COUNT 4.4 10^3/ul (4.5-11.0)
[2017-05-22] MEDS: Insulin Reg-LOW-Coverage SC SCH ×3 (08:00→16:40)
[2017-05-22 08:05] LABS: CALCIUM 8.4 mg/dL (8.4-10.5); POTASSIUM 4.8 mmol/L (3.6-5.0)
[2017-05-22] MEDS: Cefepime 1gm in NS 100ml 1 GM/100 ML BAG IVPB SCH (09:21)
--- NOTE | 2017-05-22 10:01 | CP.PCM.PN ---
<Neo Can - Last Filed: 05/22/17 09:57> Subjective - Date & Time of Evaluation Date of Evaluation: 05/22/17 Time of Evaluation: 09:57 - Subjective Subjective: 76F w/PMH sig for DM, HTN, COPD, CHF, asthma, Bilat chronic venous stasis and lymphedema, hx LE cellulitis, arthritis, gastritis, hiatal hernia seen at bedside for left leg stasis ulceration. Patient noted to be wearing offloading boot to left LE. Patient is AAO x 3 and NAD. Patient states that her left leg feels good with no new complaints of pain. Patient denies any other pedal complaints at this time. Patient denies any acute events overnight. Patient denies n/f/v/d/c/sob. Objective - Vital Signs/Intake and Output Vital Signs (last 24 hours): Temp Pulse Resp BP Pulse Ox 97.5 F L 72 20 130/78 100 05/22/17 08:00 05/22/17 08:00 05/22/17 08:00 05/22/17 08:00 05/22/17 08:00 Intake and Output: 05/22/17 05/22/17 06:59 18:59 Intake Total 120 Balance 120 - Medications Medications: Current Medications Acetaminophen (Tylenol 325mg Tab) 650 mg PO Q6H PRN PRN Reason: pain or fever Last Admin: 05/21/17 21:09 Dose: 650 mg Clonidine HCl (Catapres) 0.2 mg PO Q8 [facility] Last Admin: 05/21/17 21:10 Dose: 0.2 mg Docusate Sodium (Colace) 100 mg PO DAILY [facility] Last Admin: 05/22/17 09:21 Dose: 100 mg Ferrous Gluconate (Fergon) 324 mg PO TID [facility] Last Admin: 05/22/17 09:22 Dose: 324 mg Sodium Chloride (Sodium Chloride 0.45%) 1,000 mls @ 60 mls/hr IV .[id number] [facility] Last Admin: 05/21/17 18:14 Dose: Not Given Cefepime HCl (Maxipime 1gm) 1 gm in 100 mls @ 100 mls/hr IVPB DAILY [facility] Last Admin: 05/22/17 09:21 Dose: 100 mls/hr Vancomycin HCl (Vancomycin 1gm) 1 gm in 250 mls @ 167 mls/hr IVPB Q12H [facility] Last Admin: 05/21/17 21:10 Dose: 167 mls/hr Insulin Human Regular (Humulin R Low) 0 units SC ACHS VIN PRN Reason: Protocol Last Admin: 05/22/17 08:00 Dose: Not Given Nitroglycerin (Nitro-Bid 2% Oint) 1 ea TOP Q4H PRN PRN Reason: accelerated htn Nystatin (Nystop Topical Powder) 0 gm TOP DAILY [facility] Last Admin: 05/21/17 11:23 Dose: 1 applic - Labs Labs: 05/22/17 07:30 05/22/17 07:30 - Constitutional Appears: Well, Non-toxic, No Acute Distress - Extremities Exam Additional comments: LLE focused: Vasc: DP/PT 08/02, TG wnl, CFT < 3 sec to all digits, non-pitting edema noted to left leg improved since yesterday neuro: grossly diminished derm: superficial left lower extremity patchy stasis ulcerations with greenish/ whitish discoloration, nonpitting edema, no erythema, minimal malodor improved from yesterday, minimal serous drainage noted on bandage improved from yesterday , no ascending cellulitis, no purulence, no underlying fluctuance ortho: mild pain on palpation to left lower extremity , no pain on palpation to heel - Neurological Exam Neurological Exam: Alert, Awake, Oriented x3 - Psychiatric Exam Psychiatric exam: Normal Affect, Normal Mood Assessment and Plan - Assessment and Plan (Free Text) Assessment: 76F w/PMH sig for DM, HTN, COPD, CHF, asthma, Bilat chronic venous stasis and lymphedema, hx LE cellulitis, arthritis, gastritis, hiatal hernia seen at bedside for left lower extremity venous stasis ulceration Plan: Patient seen and evaluated at bedside Charts, labs and vitals reviewed: afebrile, WBC 4.4 Plan discussed with attending Dr. Sena Wound dressed with Maxorb, gauze, ABD, kirlix and WILLI Continue IV abx per ID Wound cx 05/19: Pseudomonas aeruginosa, Enterococcus Faecilis Foot xray 05/19: No acute findings Tib/fib x ray of left leg 05/18: no acute evidence of fracture or dislocation, no soft tissue abnormalitiies Continue PT/OT No surgical intervention planned at this time Podiatry will continue to follow while patient remains in house <Susan Senafelipa - Last Filed: 05/22/17 13:40> Objective - Vital Signs/Intake and Output Vital Signs (last 24 hours): Temp Pulse Resp BP Pulse Ox 97.5 F L 72 20 130/78 100 05/22/17 08:00 05/22/17 08:00 05/22/17 08:00 05/22/17 08:00 05/22/17 08:00 Intake and Output: 05/22/17 05/22/17 06:59 18:59 Intake Total 120 Balance 120 - Medications Medications: Current Medications Acetaminophen (Tylenol 325mg Tab) 650 mg PO Q6H PRN PRN Reason: pain or fever Last Admin: 05/21/17 21:09 Dose: 650 mg Clonidine HCl (Catapres) 0.2 mg PO Q8 [facility] Last Admin: 05/21/17 21:10 Dose: 0.2 mg Docusate Sodium (Colace) 100 mg PO DAILY [facility] Last Admin: 05/22/17 09:21 Dose: 100 mg Ferrous Gluconate (Fergon) 324 mg PO TID [facility] Last Admin: 05/22/17 09:22 Dose: 324 mg Heparin Sodium (Porcine) (Heparin) 5,000 units SC Q12 [facility] PRN Reason: Protocol Cefepime HCl (Maxipime 1gm) 1 gm in 100 mls @ 100 mls/hr IVPB DAILY [facility] Last Admin: 05/22/17 09:21 Dose: 100 mls/hr Vancomycin HCl (Vancomycin 1gm) 1 gm in 250 mls @ 167 mls/hr IVPB Q12H [facility] Last Admin: 05/22/17 11:07 Dose: 167 mls/hr Sodium Chloride (Sodium Chloride 0.45%) 1,000 mls @ 50 mls/hr IV .Q20H [facility] Insulin Human Regular (Humulin R Low) 0 units SC ACHS VIN PRN Reason: Protocol Last Admin: 05/22/17 11:38 Dose: Not Given Nitroglycerin (Nitro-Bid 2% Oint) 1 ea TOP Q4H PRN PRN Reason: accelerated htn Nystatin (Nystop Topical Powder) 0 gm TOP DAILY [facility] Last Admin: 05/22/17 10:11 Dose: 1 applic - Labs Labs: 05/22/17 07:30 05/22/17 07:30 Attending/Attestation - Attestation I have personally seen and examined this patient.: Yes I have fully participated in the care of the patient.: Yes I have reviewed all pertinent clinical information, including history, physical exam and plan: Yes
[2017-05-22] MEDS: Nystatin 100,000 Units/gm Topical Pow(15 gm) TOP SCH (10:11)
[2017-05-22] MEDS ORDERED: Magnesium Citrate Oral SOL (300 ml) PO ONE (10:32)
[2017-05-22] MEDS: Vancomycin 1gm in NS 250ml 1 GM/250 ML BAG IVPB SCH ×2 (11:07→20:49)
[2017-05-22] MEDS ORDERED: Sodium Chloride 0.45% 1,000 ML IV SCH (12:08)
--- NOTE | 2017-05-22 13:59 | PN ---
DATE: 05/22/2017 SUBJECTIVE: This 76-year-old female was examined at her bedside in the presence of her nurse, Carola. The nurse in my presence took down her left leg wound dressing which revealed a healing left lower extremity venous ulcer, now dry and with no open drainage areas noted. The patient remains afebrile. She has been seen daily by Dr. Moe Sena from podiatry. She is receiving parenteral antibiotics for wound culture that is growing Pseudomonas aeruginosa and enterococcus faecalis, and blood cultures show no growth at 3 days. The patient denies fever, chills, chest pain, shortness of breath, however, on physical therapy attempt today, was unable to stand or ambulate with assistance. PHYSICAL EXAMINATION: VITAL SIGNS: Temperature is 97.5, respirations 20, pulse 72, blood pressure 130/78, pulse ox 98%. HEENT: Head: Normocephalic, atraumatic. Eyes: No icterus. Ears: Clear. Throat: Non-injected. NECK: Supple. LUNGS: Clear. HEART: Regular S1, S2. ABDOMEN: Obese. EXTREMITIES: With a healing left venous stasis ulcer. VASCULAR: Legs warm to touch. PSYCHOLOGICAL: Alert and oriented x3. NEUROLOGIC: Intact. Marked deconditioning noted. LABORATORY DATA: White count 4400, hemoglobin 10.4, hematocrit 34.5, platelets 174,000. Sodium 139, K 4.8, chloride 103, bicarb 29, BUN 32, creatinine 1.3. Estimated GFR 48 mL per minute. Random blood sugar 104, calcium 8.4, normal. T sat percent low 9, ferritin level 21.6. IMPRESSION: A 76-year-old female with morbid obesity, left lower venous stasis changes, healing ulcer, cellulitis of both lower extremities, chronic hypertension, anemia of chronic disease, iron-deficiency anemia for which the patient states she had a full gastrointestinal workup at the [facility] that was negative for any cancerous lesions. Also, with marked deconditioning. PLAN: At present as discussed with the patient and nursing at bedside is to continue daily wound care, including dressing changes by Podiatry as outlined. She will continue on parenteral vancomycin and Maxipime. She continues on heparin subcu 5000 units q.12. I have ordered a venous Doppler of both lower extremities given her bedridden status to rule out DVT. She is ordered to be out of bed to chair daily. She will continue on ferrous gluconate 324 mg p.o. t.i.d., Colace 100 mg p.o. daily, clonidine 0.2 mg p.o. q.8h., and 0.45 saline at 50 mL per hour while monitoring daily electrolytes and attempting to reach a nayely on her creatinine. She will have a random vancomycin level performed tomorrow. Social Service has been contacted. They feel the patient will require subacute rehab. The patient is not happy with this decision at present. I have explained to the patient that unless she is able to ambulate independently or have family members that can care for her, she will need to discuss with Social Service further outpatient treatment options. Greater than fifty minutes was spent in the care, management, and counseling of this patient today. All questions were answered and reviewed with the patient, her nurse, case folder, and Social Service today. Bernice Polo MD MTDD
--- NOTE | 2017-05-22 14:00 | RAD ---
HISTORY: s/p picc placement COMPARISON: 05/18/2017 FINDINGS: LUNGS: No active pulmonary disease. PLEURA: No significant pleural effusion identified, no pneumothorax apparent. CARDIOVASCULAR: Severe cardiomegaly OSSEOUS STRUCTURES: No significant abnormalities. VISUALIZED UPPER ABDOMEN: Normal. OTHER FINDINGS: None IMPRESSION: Right-sided PICC line terminates in the SVC at the level of the aortic arch
[2017-05-23] MEDS ORDERED: Albuterol-Ipratrop 3 mg / 0.5 (3 ml) UD IH STA (01:52)
[2017-05-23 07:27] LABS: CALCIUM 8.8 mg/dL (8.4-10.5); POTASSIUM 5.1 mmol/L (3.6-5.0)
[2017-05-23 07:46] VITALS: RESP 18; TEMP 97.4; O2SAT 95
[2017-05-23] MEDS: Insulin Reg-LOW-Coverage SC SCH ×3 (07:58→11:59)
[2017-05-23] MEDS ORDERED: Sod Polystyrene Sulf 15 gm/60 ml Susp PO ONE (08:34)
--- NOTE | 2017-05-23 09:50 | US ---
HISTORY: Leg pain and swelling. Evaluate for DVT PHYSICIAN(S): Sanchez Muhammad MD. TECHNIQUE: Duplex sonography and color-flow Doppler with graded compression were used to evaluate the deep venous systems of both lower extremities. FINDINGS: The exam is extremely limited and essentially nondiagnostic due to the patient's size, edema, and inability to cooperate. The visualized deep venous systems of both lower extremities are sonographically normal and compressible. IMPRESSION: No sonographic evidence for deep venous thrombosis in the visualized segments of both lower extremities. Extremely limited study
--- NOTE | 2017-05-23 09:54 | CP.PCM.PN ---
<Neo Can - Last Filed: 05/23/17 09:49> Subjective - Date & Time of Evaluation Date of Evaluation: 05/23/17 Time of Evaluation: 09:49 - Subjective Subjective: 76F w/PMH sig for DM, HTN, COPD, CHF, asthma, Bilat chronic venous stasis and lymphedema, hx LE cellulitis, arthritis, gastritis, hiatal hernia seen at bedside for left leg stasis ulceration. Patient noted to be wearing offloading boot to left LE. Patient is AAO x 3 and NAD. Patient states that she is slightly short of breath and tired at this time. Patient states that her left leg feels good with no new complaints of pain. Patient denies any other pedal complaints at this time. Patient denies any acute events overnight. Patient denies n/f/v/d/c Objective - Vital Signs/Intake and Output Vital Signs (last 24 hours): Temp Pulse Resp BP Pulse Ox 97.4 F L 80 18 136/79 95 05/23/17 07:30 05/23/17 07:30 05/23/17 07:30 05/23/17 07:30 05/23/17 07:30 Intake and Output: 05/23/17 05/23/17 06:59 18:59 Intake Total 120 Balance 120 - Medications Medications: Current Medications Acetaminophen (Tylenol 325mg Tab) 650 mg PO Q6H PRN PRN Reason: pain or fever Last Admin: 05/21/17 21:09 Dose: 650 mg Clonidine HCl (Catapres) 0.2 mg PO Q8 [facility] Last Admin: 05/23/17 06:14 Dose: 0.2 mg Docusate Sodium (Colace) 100 mg PO DAILY [facility] Last Admin: 05/22/17 09:21 Dose: 100 mg Ferrous Gluconate (Fergon) 324 mg PO DAILY [facility] Heparin Sodium (Porcine) (Heparin) 5,000 units SC Q12 [facility] PRN Reason: Protocol Last Admin: 05/22/17 21:13 Dose: 5,000 units Cefepime HCl (Maxipime 1gm) 1 gm in 100 mls @ 100 mls/hr IVPB DAILY [facility] Last Admin: 05/22/17 09:21 Dose: 100 mls/hr Vancomycin HCl (Vancomycin 1gm) 1 gm in 250 mls @ 167 mls/hr IVPB Q12H [facility] Last Admin: 05/22/17 20:49 Dose: 167 mls/hr Sodium Chloride (Sodium Chloride 0.45%) 1,000 mls @ 50 mls/hr IV .Q20H [facility] Last Admin: 05/22/17 15:04 Dose: 50 mls/hr Insulin Human Regular (Humulin R Low) 0 units SC ACHS [facility] PRN Reason: Protocol Last Admin: 05/23/17 08:27 Dose: Not Given Nitroglycerin (Nitro-Bid 2% Oint) 1 ea TOP Q4H PRN PRN Reason: accelerated htn Nystatin (Nystop Topical Powder) 0 gm TOP DAILY [facility] Last Admin: 05/22/17 10:11 Dose: 1 applic - Labs Labs: 05/22/17 07:30 05/23/17 07:00 - Constitutional Appears: Well, Non-toxic, No Acute Distress - Extremities Exam Additional comments: LLE focused: Vasc: DP/PT 1/4, TG wnl, CFT < 3 sec to all digits, non-pitting edema noted to left leg improved since yesterday neuro: grossly diminished derm: superficial left lower extremity patchy stasis ulcerations with greenish/ whitish discoloration, nonpitting edema, no erythema, minimal malodor improved from yesterday and significantly improved since admission, minimal serous drainage noted on bandage improved from yesterday, no ascending cellulitis, no purulence, no underlying fluctuance ortho: minimal pain on palpation to left lower extremity , no pain on palpation to heel - Neurological Exam Neurological Exam: Alert, Awake, Oriented x3 - Psychiatric Exam Psychiatric exam: Normal Affect, Normal Mood Assessment and Plan - Assessment and Plan (Free Text) Assessment: 76F w/PMH sig for DM, HTN, COPD, CHF, asthma, Bilat chronic venous stasis and lymphedema, hx LE cellulitis, arthritis, gastritis, hiatal hernia seen at bedside for left lower extremity venous stasis ulceration; healing Plan: Patient seen and evaluated at bedside Charts, labs and vitals reviewed: afebrile Plan discussed with attending Dr. Sena Wound dressed with Maxorb, gauze, ABD, kirlix and WILLI wrapping Continue IV abx per ID Wound cx 05/19: Pseudomonas aeruginosa, Enterococcus Faecilis Foot xray 05/19: No acute findings Tib/fib x ray of left leg 05/18: no acute evidence of fracture or dislocation, no soft tissue abnormalitiies B/l duplex ultrasound 05/22: No evidence of b/l DVT in limited study Continue PT/OT Continue use of offloading boot No surgical intervention planned at this time Podiatry will continue to follow while patient remains in house <Moe Sena - Last Filed: 05/23/17 13:27> Objective - Vital Signs/Intake and Output Vital Signs (last 24 hours): Temp Pulse Resp BP Pulse Ox 97.4 F L 80 18 136/79 95 05/23/17 07:30 05/23/17 07:30 05/23/17 07:30 05/23/17 07:30 05/23/17 07:30 Intake and Output: 05/23/17 05/23/17 06:59 18:59 Intake Total 120 Balance 120 - Medications Medications: Current Medications Acetaminophen (Tylenol 325mg Tab) 650 mg PO Q6H PRN PRN Reason: pain or fever Last Admin: 05/21/17 21:09 Dose: 650 mg Clonidine HCl (Catapres) 0.2 mg PO Q8 [facility] Last Admin: 05/23/17 06:14 Dose: 0.2 mg Docusate Sodium (Colace) 100 mg PO DAILY [facility] Last Admin: 05/23/17 11:56 Dose: 100 mg Ferrous Gluconate (Fergon) 324 mg PO DAILY [facility] Last Admin: 05/23/17 11:57 Dose: 324 mg Heparin Sodium (Porcine) (Heparin) 5,000 units SC Q12 [facility] PRN Reason: Protocol Last Admin: 05/23/17 11:57 Dose: 5,000 units Cefepime HCl (Maxipime 1gm) 1 gm in 100 mls @ 100 mls/hr IVPB DAILY [facility] Last Admin: 05/23/17 11:55 Dose: 100 mls/hr Vancomycin HCl (Vancomycin 1gm) 1 gm in 250 mls @ 167 mls/hr IVPB Q12H [facility] Last Admin: 05/22/17 20:49 Dose: 167 mls/hr Insulin Human Regular (Humulin R Low) 0 units SC ACHS [facility] PRN Reason: Protocol Last Admin: 05/23/17 11:59 Dose: Not Given Nitroglycerin (Nitro-Bid 2% Oint) 1 ea TOP Q4H PRN PRN Reason: accelerated htn Nystatin (Nystop Topical Powder) 0 gm TOP DAILY [facility] Last Admin: 05/23/17 11:59 Dose: 1 applic - Labs Labs: 05/22/17 07:30 05/23/17 07:00 Attending/Attestation - Attestation I have personally seen and examined this patient.: Yes I have fully participated in the care of the patient.: Yes I have reviewed all pertinent clinical information, including history, physical exam and plan: Yes
[2017-05-23] MEDS: Cefepime 1gm in NS 100ml 1 GM/100 ML BAG IVPB SCH (11:55)
[2017-05-23] MEDS: Nystatin 100,000 Units/gm Topical Pow(15 gm) TOP SCH (11:59)
[2017-05-23] MEDS: Vancomycin 1gm in NS 250ml 1 GM/250 ML BAG IVPB SCH (14:06)
[2017-05-23 15:13] VITALS: BP 148/90; PULSE 85
--- NOTE | 2017-05-23 15:50 | CP.PCM.CON ---
History of Present Illness - History of Present Illness History of Present Illness: renal consult note: 76F with DM, HTN, COPD, CHF, asthma, Bilat chronic venous stasis, hiatal hernia , CKD stage 4 sec to htn and cardiorenal syndrome is admitted post fall due to loss of balance.liseth ahs baseline ckd sec to dm/htn/cardiorenal syndrome. she is planned for discharge to [facility] today . Review of Systems - Review of Systems All systems: reviewed and no additional remarkable complaints except Past Patient History - Infectious Disease Hx of Infectious Diseases: None - Past Medical History & Family History Past Medical History?: Yes - Past Social History Smoking Status: Former Smoker - CARDIAC Hx Pacemaker: No - PULMONARY Hx Chronic Obstructive Pulmonary Disease (COPD): Yes - NEUROLOGICAL Hx Neurological Disorder: No - HEENT Hx HEENT Problems: No - RENAL Hx Chronic Kidney Disease: No - ENDOCRINE/METABOLIC Hx Diabetes Mellitus Type 2: Yes Hx Hypothyroidism: Yes - HEMATOLOGICAL/ONCOLOGICAL Hx Cancer: No - INTEGUMENTARY Hx Dermatological Problems: No - MUSCULOSKELETAL/RHEUMATOLOGICAL Hx Arthritis: Yes - GASTROINTESTINAL Hx Gastrointestinal Disorders: No (bm x 4 days) - GENITOURINARY/GYNECOLOGICAL Hx Genitourinary Disorders: No - PSYCHIATRIC Hx Psychophysiologic Disorder: No Hx Substance Use: No - SURGICAL HISTORY Hx Mastectomy: No - ANESTHESIA Hx Anesthesia: Yes Meds Allergies/Adverse Reactions: Allergies Allergy/AdvReac Type Severity Reaction Status Date / Time chocolate flavor Allergy RASH Verified 05/15/17 16:49 Penicillins Allergy RASH Verified 05/15/17 16:48 cheese doodles Allergy SWELLING Uncoded 05/15/17 16:50 tomatoe sauce Allergy RASH Uncoded 05/15/17 16:50 - Medications Medications: Current Medications Acetaminophen (Tylenol 325mg Tab) 650 mg PO Q6H PRN PRN Reason: pain or fever Last Admin: 05/23/17 15:10 Dose: 650 mg Clonidine HCl (Catapres) 0.2 mg PO Q8 [facility] [place] Last Admin: 05/23/17 15:11 Dose: 0.2 mg Docusate Sodium (Colace) 100 mg PO DAILY [facility] [place] Last Admin: 05/23/17 11:56 Dose: 100 mg Ferrous Gluconate (Fergon) 324 mg PO DAILY [facility] [place] Last Admin: 05/23/17 11:57 Dose: 324 mg Heparin Sodium (Porcine) (Heparin) 5,000 units SC Q12 [facility] PRN Reason: Protocol Last Admin: 05/23/17 11:57 Dose: 5,000 units Cefepime HCl (Maxipime 1gm) 1 gm in 100 mls @ 100 mls/hr IVPB DAILY [facility] [place] Last Admin: 05/23/17 11:55 Dose: 100 mls/hr Vancomycin HCl (Vancomycin 1gm) 1 gm in 250 mls @ 167 mls/hr IVPB Q12H [facility] Last Admin: 05/23/17 14:06 Dose: 167 mls/hr Insulin Human Regular (Humulin R Low) 0 units SC ACHS [facility] PRN Reason: Protocol Last Admin: 05/23/17 11:59 Dose: Not Given Nitroglycerin (Nitro-Bid 2% Oint) 1 ea TOP Q4H PRN PRN Reason: accelerated htn Nystatin (Nystop Topical Powder) 0 gm TOP DAILY [facility] Last Admin: 05/23/17 11:59 Dose: 1 applic Physical Exam - Constitutional Appears: Non-toxic, No Acute Distress - Head Exam Head Exam: NORMAL INSPECTION - Eye Exam Eye Exam: Normal appearance - ENT Exam ENT Exam: Mucous Membranes Moist - Respiratory Exam Respiratory Exam: NORMAL BREATHING PATTERN - Cardiovascular Exam Cardiovascular Exam: +S1, +S2 - GI/Abdominal Exam GI & Abdominal Exam: Soft - Extremities Exam Extremities exam: Positive for: pedal edema - Neurological Exam Neurological exam: Alert, Oriented x3 - Skin Skin Exam: Dry Results - Vital Signs Recent Vital Signs: Last Vital Signs Temp 97.4 F L 05/23/17 07:30 Pulse 85 05/23/17 15:11 Resp 18 05/23/17 07:30 BP 148/90 05/23/17 15:11 Pulse Ox 95 05/23/17 07:30 - Labs Result Diagrams: 05/22/17 07:30 05/23/17 07:00 Labs: Laboratory Results - last 24 hr 05/22/17 05/22/17 05/22/17 10:58 16:18 20:55 Sodium Potassium Chloride Carbon Dioxide Anion Gap BUN Creatinine Est GFR ( Amer) Est GFR (Non-Af Amer) POC Glucose (mg/dL) 142 H 122 H 154 H Random Glucose Calcium Random Vancomycin 05/23/17 05/23/17 05/23/17 07:00 07:00 07:25 Sodium 139 Potassium 5.1 H Chloride 103 Carbon Dioxide 31 Anion Gap 10 BUN 29 H Creatinine 1.2 Est GFR ( Amer) 53 Est GFR (Non-Af Amer) 44 POC Glucose (mg/dL) 94 Random Glucose 104 Calcium 8.8 Random Vancomycin 27.3 Assessment & Plan - Assessment and Plan (Free Text) Plan: CKD stage 4/htn/dm/edema/cad/chf/fall cr is stable mild hyperkalemia noted: medical management bp ok anemia stable, dm per primary care
--- NOTE | 2017-05-23 23:43 | DS ---
FINAL DIAGNOSES: Bilateral cellulitis, improving; morbid obesity; acute renal failure, improving; chronic hypertension; anemia of chronic disease; iron-deficiency anemia; insulin-dependent diabetes mellitus and degenerative arthritis. DISPOSITION: Subacute rehab. DISCHARGE DIET: Renal, heart healthy, diabetic. DISCHARGE MEDICATIONS: Clonidine 0.2 mg p.o. t.i.d.; Colace 100 mg p.o. daily; ferrous gluconate 324 mg p.o. daily; heparin 5000 units subQ q. 12; regular low-dose insulin coverage a.c. meals and at bedtime; Maxipime 1 g IV q. 24 for an additional 3 days, then discontinue; vancomycin 1 g IV q. 12 for an additional 3 days, then discontinue; nitroglycerin 1 inch to chest wall q. 4 hours p.r.n., systolic blood pressure greater than 160, diastolic blood pressure greater than 180; Tylenol 650 p.o. q. 6 hours p.r.n. pain or temperature greater than 101. Wound care instructions and skin care as per Dr. Moe Sena from podiatry. SUMMARY: This 76-year-old female was admitted to [facility] with bilateral lower extremity cellulitis and a healing left venous stasis ulcer with microbiology, wound culture showing Pseudomonas aeruginosa and Enterococcus faecalis, sensitive to vancomycin and Maxipime. Blood cultures were showing no growth to date. The patient was treated with parenteral antibiotics and local wound care. Unfortunately, she was so markedly deconditioned that she will need subacute rehab despite her desire to go home. At the time of discharge, her temperature was 97.4, respirations 18, pulse 80 and blood pressure 136/79 with a pulse ox of 95% on room air. Labs show white count 4400; hemoglobin 10.4; hematocrit 34.5 and platelets 174,000. Sodium 139, K of 5.1, chloride 103, bicarb 31, BUN 29, creatinine 1.2 and random blood sugar 94. The patient had an iron level of 27, a percent saturation of 9, a ferritin level of 21.6, a B12 of 879 and folic acid greater than 20. The patient states she has had a GI workup at the [facility] including endoscopy and colonoscopy that were negative for cancer. She will need close followup of her electrolytes and CBC at subacute rehab and because of cardiomegaly on a chest x-ray, I have requested that her physician at the rehab perform a 2-D echocardiogram to evaluate wall motion and heart size. The need for this follow up plan was reviewed in detail with the PHARMACY BUYER and caser in and [place]. All of this was discussed in detail with the patient and her nurse, Mily Winston, registered nurse, at the bedside. Greater than fifty minutes was spent in the care, management and counseling of this patient today. Overall prognosis though poor is stable at present. Bernice Polo MD MTDD
== END 2017-05-23 17:45 | DRG 603 ==
LOC: ED 16:43 → OBSVTOIN 21:33 → ERH 21:33 → 5RSO 05-19 00:23 → UNDODISIN 05-23 18:00
PROVIDERS: ADMIT Internal Medicine; ATTEND Internal Medicine
DX: L03.115 Cellulitis of right lower limb (principal); E11.22 Type 2 diabetes mellitus with diabetic chronic kidney disease; N17.9 Acute kidney failure, unspecified; N18.4 Chronic kidney disease, stage 4 (severe); I13.0 Hypertensive heart and chronic kidney disease with heart failure and stage 1 through stage 4 chronic kidney disease, or unspecified chronic kidney disease; I50.9 Heart failure, unspecified; E11.622 Type 2 diabetes mellitus with other skin ulcer; L97.929 Non-pressure chronic ulcer of unspecified part of left lower leg with unspecified severity; Z68.42 Body mass index [BMI] 45.0-49.9, adult; L03.116 Cellulitis of left lower limb; E66.01 Morbid (severe) obesity due to excess calories; J44.9 Chronic obstructive pulmonary disease, unspecified; M19.90 Unspecified osteoarthritis, unspecified site; D63.8 Anemia in other chronic diseases classified elsewhere; D50.9 Iron deficiency anemia, unspecified; B96.5 Pseudomonas (aeruginosa) (mallei) (pseudomallei) as the cause of diseases classified elsewhere; I89.0 Lymphedema, not elsewhere classified; E87.5 Hyperkalemia; K29.70 Gastritis, unspecified, without bleeding; K44.9 Diaphragmatic hernia without obstruction or gangrene; B95.2 Enterococcus as the cause of diseases classified elsewhere; I87.8 Other specified disorders of veins; Z87.891 Personal history of nicotine dependence; Z88.0 Allergy status to penicillin; Z79.4 Long term (current) use of insulin; Z79.84 Long term (current) use of oral hypoglycemic drugs